=== PATIENT | female | born 1985 | race Caucasian/White ===

== ENCOUNTER 2017-06-06 22:20 | Emergency (ER) | payer MEDICAID ==
[~2017-06-06] VITALS: Ht 154.9 cm; Wt 92.0 kg
[2017-06-06 22:43] VITALS: BP 99/65
== END 2017-06-07 00:44 | disposition left against medical advice (07) ==
LOC: ER 22:20
DX: H92.09 Otalgia, unspecified ear (principal); Z53.21 Procedure and treatment not carried out due to patient leaving prior to being seen by health care provider